=== PATIENT | female | born 1945 | race Caucasian/White ===

== ENCOUNTER 2024-02-03 14:04 | Day surgery (SDC) | payer MEDICARE ==
[2024-02-03] MEDS ORDERED: LIDOCAINE HCL 1% 50 MG/5 ML VL PF IJ ONE (14:05)
[2024-02-03] MEDS ORDERED: Depo-Medrol 40 MG/ML IM ONE (14:05)
[2024-02-03] MEDS ORDERED: BUPIVACAINE 0.5% VIAL IJ ONE (14:05)
--- NOTE | 2024-02-03 16:42 | XRAY ---
Indication: Left knee injection. Intraoperative fluoroscopy provided for 6 seconds. 2 digital spot image submitted for interpretation demonstrates needle tip projecting over left femur intercondylar notch. Small amount of contrast injected for needle tip placement. Correlate with intraoperative findings/report.
--- NOTE | 2024-02-04 09:49 | XRAY ---
6 seconds of fluoroscopy was used in surgery for a left intra-articular knee injection.
== END 2024-02-03 16:04 | disposition home or self-care (01) ==
LOC: SDC-PAIN 14:04
PROVIDERS: ATTEND Psychiatry & Neurology Pain Medicine
DX: M17.12 Unilateral primary osteoarthritis, left knee (principal)
CPT/HCPCS: 20610; 73560; 77002; J2001; Q9966

== ENCOUNTER 2024-06-01 16:11 | Day surgery (SDC) | payer MEDICARE ==
[2024-06-01] MEDS ORDERED: GELSYN-3 IU ONE (16:12)
[2024-06-01] MEDS ORDERED: LIDOCAINE HCL 1% AMPUL 5 ML IJ ONE (16:12)
--- NOTE | 2024-06-01 20:58 | XRAY ---
Indication: Left knee injection. Intraoperative fluoroscopy provided for 12 second. 2 digital spot image submitted for interpretation demonstrates needle tip projecting over left femur intercondylar notch. Small amount of contrast injected for needle tip placement. Correlate with intraoperative findings/report.
--- NOTE | 2024-06-02 09:10 | XRAY ---
12 seconds of fluoroscopy was used in surgery for a left intra-articular knee injection.
== END 2024-06-01 18:50 ==
LOC: SDC-PAIN 16:11
PROVIDERS: ATTEND Psychiatry & Neurology Pain Medicine
DX: M17.12 Unilateral primary osteoarthritis, left knee (principal)
CPT/HCPCS: 20610; 73560; 77002; J7328; Q9967

== ENCOUNTER 2024-06-08 16:00 | Day surgery (SDC) | payer MEDICARE ==
[2024-06-08] MEDS ORDERED: LIDOCAINE HCL 1% AMPUL 5 ML IJ ONE (16:01)
[2024-06-08] MEDS ORDERED: GELSYN-3 IU ONE (16:01)
--- NOTE | 2024-06-08 18:35 | XRAY ---
Indication: Left knee injection. Intraoperative fluoroscopy provided for 7 seconds. Single digital spot images submitted for interpretation demonstrates needle tip projecting over left femur intercondylar notch. Small amount of contrast injected for needle tip placement. Correlate with intraoperative findings/report.
--- NOTE | 2024-06-09 09:22 | XRAY ---
7 seconds of fluoroscopy was used in surgery for left intra-articular knee injection.
== END 2024-06-08 18:15 | disposition home or self-care (01) ==
LOC: SDC-PAIN 16:00
PROVIDERS: ATTEND Psychiatry & Neurology Pain Medicine
DX: M17.12 Unilateral primary osteoarthritis, left knee (principal)
CPT/HCPCS: 73560; 77002; G0260; 20610; J7328; Q9966

== ENCOUNTER 2024-06-22 16:07 | Day surgery (SDC) | payer MEDICARE ==
[2024-06-22] MEDS ORDERED: LIDOCAINE HCL 1% AMPUL 5 ML IJ ONE (16:08)
[2024-06-22] MEDS ORDERED: GELSYN-3 IU ONE (16:08)
--- NOTE | 2024-06-22 19:07 | XRAY ---
Indication: Left knee injection. Intraoperative fluoroscopy provided for 5 seconds. Single digital spot image submitted for interpretation demonstrates needle tip projecting over left femur intercondylar notch. Small amount of contrast injected for all needle tip placement. Correlate with intraoperative findings/report.
--- NOTE | 2024-06-23 09:00 | XRAY ---
5 seconds of fluoroscopy used in surgery for a left intra-articular knee injection.
== END 2024-06-22 18:15 | disposition home or self-care (01) ==
LOC: SDC-PAIN 16:07
PROVIDERS: ATTEND Psychiatry & Neurology Pain Medicine
DX: M17.12 Unilateral primary osteoarthritis, left knee (principal)
CPT/HCPCS: 20610; 73560; 77002; J7328; Q9966